=== PATIENT | female | born 1995 | race Caucasian/White ===

== ENCOUNTER 2021-12-13 11:20 | Inpatient (IN) | payer MEDICAID ==
--- NOTE | 2021-12-13 13:51 | Ultrasound Report ---
ULTRASOUND OBSTETRIC INDICATION / CLINICAL INFORMATION: IUGR- GET, EFW. Clinical Gestational Age (GA): 3 9.1 weeks.days TECHNIQUE: Transabdominal. COMPARISON: None available. FINDINGS: There is a single intrauterine . Biparietal Diameter = 8.58 cm = 34.4 weeks.days Head Circumference = 31.97 cm = 36.0 weeks.days Abdominal Circumference = 30.01 cm = 34.0 weeks.days Femur Length = 6.80 cm = 35.0 weeks.days Average Ultrasound Age (AUA) = 34.6 weeks.days Heart Rate: 137 beats per minute. Estimated Weight in grams (if calculated): 2450 Estimated Weight Growth Percentile (if calculated): 1 BREATHING MOVEMENT = 2 GROSS BODY MOVEMENT = 2 TONE = 2 QUALITATIVE AMNIOTIC FLUID VOLUME = 2 TOTAL BIOPHYSICAL SCORE = 8/8 Position: cephalic. Cervix: closed. Amniotic Fluid Volume: normal Amniotic Fluid Index (GET) in cm (if calculated): 12.3. Maternal Adnexa: No significant abnormality. IMPRESSION: 1. Single, living intrauterine with estimated sonographic age of 34.6 weeks.days 2. Biophysical Score = 8/8 Signer Name: Herbert Hoffman MD Signed: 12/13/2021 1:46 PM Workstation Name: [id number]
[2021-12-13] MEDS ORDERED: miSOPROStol 200 MCG TAB PR PRN (20:21)
[2021-12-13] MEDS ORDERED: OXYTOCIN 10 UNIT/1 ML INJ IM PRN (20:21)
[2021-12-13] MEDS ORDERED: METHYLERGONOVINE MALEATE 0.2 MG/ML VIAL IM PRN (20:21)
[2021-12-13] MEDS ORDERED: LOPERAMIDE 2 MG CAP PO PRN (20:21)
[2021-12-13] MEDS ORDERED: CARBOPROST TROMETHAMINE 250 MCG/1 ML INJ IM PRN (20:21)
[2021-12-13] MEDS ORDERED: ePHEDrine SULFATE 50 MG/1 ML INJ IV PRN (20:21)
[2021-12-13 22:18] LABS: Hematocrit 32.2 % (30.3-42.9); Hemoglobin 9.8 gm/dl (10.1-14.3); Mean Corpuscular HGB Conc 31 % (30-34); Mean Corpuscular Volume 80 fl (79-97); Platelet Count 220 K/mm3 (140-440); Red Blood Count 4.03 M/mm3 (3.65-5.03)
[2021-12-13 22:20] LABS: Red Cell Distribution Width 23.3 % (13.2-15.2)
--- NOTE | 2021-12-13 22:23 | Ultrasound Report ---
ULTRASOUND OB VELOCIMETRY UMBILICAL ARTERY INDICATION: Intrauterine growth retardation. TECHNIQUE: Transabdominal ultrasound with color and spectral Doppler imaging COMPARISON: No relevant prior imaging study available. FINDINGS: 3 segments of the umbilical cord were evaluated. heart rate measures 141 bpm. The spectral wave forms are normal and persistent. Average S/D ratio measures: 2.58 Average resistive index measures: 0.61 Signer Name: Uriel Swanson MD Signed: 12/13/2021 10:18 PM Workstation Name: [email or web address]
--- NOTE | 2021-12-13 22:32 | History and Physical Report ---
History of Present Illness Date of examination: 12/13/21 Date of admission: 12/13/21 Chief complaint: Pt sent from office to r/o IUGR History of present illness: 26 yo EDC 12/20/21 @ 39 weeks. Pt. sent from office to r/o IUGR secondary S<D. Pt. admits to good movement. 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 Family/Genetic History: heart disease, hypertension, other (Renal disease) Social history: no significant social history - Obstetrical History Expected Date of Delivery: 12/20/21 Actual Gestation: 39 Week(s) 0 Day(s) : 3 Para: 2 Hx # Term Pregnancies: 2 Number of Pregnancies: 0 Spontaneous Abortions: 0 Induced : 0 Number of Living Children: 2 #1 year: Birthweight: 3.572 kg Method of Delivery: Gestational age at delivery: 40 #2 Gender: Female Birthweight: 2.92 kg Method of Delivery: Medications and Allergies Allergies Allergy/AdvReac Type Severity Reaction Status Date / Time No Known Allergies Allergy Verified 12/12/21 17:37 Home Medications Medication Instructions Recorded Confirmed Last Taken Type Ascorbic Acid [Vitamin C] 500 mg PO QDAY 12/12/21 12/12/21 Unknown History Ferrous Sulfate [Feosol] 325 mg PO TID 12/12/21 12/12/21 Unknown History Active Meds: Active Medications Carboprost Tromethamine (Carboprost Tromethamine 250 Mcg/1 Ml Inj) 250 mcg IM ONCE PRN PRN Reason: Uterine Bleeding Lactated Ringer's (Lactated Ringers) 1,000 mls @ 125 mls/hr IV DIRECT ANJALI Methylergonovine Maleate (Methylergonovine Maleate 0.2 Mg/Ml Vial) 0.2 mg IM ONCE PRN PRN Reason: Uterine Bleeding - Vital Signs Vital signs: Vital Signs Pulse Pulse Ox 91 H 99 12/13/21 12:11 12/13/21 12:11 Temp Pulse Resp BP Pulse Ox 98.1 F 91 H 18 124/70 97 12/13/21 20:24 12/13/21 21:47 12/13/21 12:12 12/13/21 20:27 12/13/21 21:47 - Physical Exam Cardiovascular: Regular rate Lungs: Positive: Clear to auscultation Uterus: Positive: enlarged Extremities: Positive: normal - Obstetrical FHR: category 1 Uterine Contraction Monitor Mode: External Uterine Contraction Pattern: Irregular Results Result Diagrams: 12/13/21 21:37 Abnormal lab results 12/13/21 Range/Units 21:37 Hgb 9.8 L (10.1-14.3) gm/dl MCH 25 L (28-32) pg RDW 23.3 H (13.2-15.2) % All other labs normal. Assessment and Plan IUP @ 39 weeks EFW @ 1 % Previous C section x2 IUGR @ term BPP 12/03. Normal dopplers Pt. for delivery since IUGR @ term Pt. for Csection Desires delivery in am OK for Csection in am . testing reassuring
[2021-12-14] MEDS ORDERED: BUTORPHANOL 2 MG/1 ML INJ IV PRN (02:38)
[2021-12-14] MEDS ORDERED: PENICILLIN G POTASSIUM 5 MIL.UNITS in SODIUM CHLORIDE 0.9% 100 ML IV ONE (02:38)
[2021-12-14] MEDS ORDERED: fentaNYL 100 MCG/2 ML INJ IV PRN (02:38)
[2021-12-14] MEDS ORDERED: ACETAMINOPHEN 325 MG TAB PO PRN ×2 (02:38→21:18)
[2021-12-14] MEDS ORDERED: OXYTOCIN DRIP 30 UNITS/500 ML BAG IV SCH ×2 (03:00)
[2021-12-14] MEDS: LACTATED RINGERS 1,000 ML IV SCH ×2 (03:22→13:30)
--- NOTE | 2021-12-14 03:33 | Event Note ---
Date: 12/13/21 CHIEF COMPLAINT: HD #1, growth restriction HISTORY OF PRESENT ILLNESS: 26-year-old at 39-1/7 weeks gestation is admitted to labor and delivery for management of growth restriction as her fetus has an estimated weight that is less than the 1st percentile. There is no vaginal bleeding. There is no leaking of fluid. There are no contractions. There is good movement. The patient has a history of 2 previous deliveries. Both deliveries were performed in [place] by Dr. Kriss Aburto. The patient reports that the first delivery was allegedly performed secondary to distress. The patient reports that the second delivery was allegedly performed because her cervical dilation was slower than than what her doctor anticipated. Repeat delivery was originally planned for tomorrow morning; however, further investigation revealed that this patient with growth restriction was not formally scheduled and was planned to be performed as the third case of the day barring any other deterring issues. At that time, the patient and I discussed trial of labor after (TOLAC). With her nurse in the room, the patient was counseled in great detail according to ACOG Practice Bulletin 205 (May 2018) regarding the risks associated with TOLAC. The patient understood that with her clinical history, the likelihood of successful is approximately 60-70% according to the [facility] calculator. Furthermore, the patient understood that with her clinical history, the likelihood of uterine rupture is less than 2%. Voicing understanding of all of the risks, alternatives, and benefits, the patient wished to proceed with TOLAC. OBJECTIVE: BP= 124/70 EFM= Category 1 TOCO= None SVE= 0.5/50%/-3/soft/mid. Headley score= 4. LABS: HgB= 9.8 RADIOLOGY: OB US Limited= SLIUP. Vertex. No placenta previa. EFW= 2450 g (<1st %-ile). GET= 12.3 cm. OB Umbilical Artery Cord Dopplers= WNL IMPRESSION: 1.) 39 weeks 2.) growth restriction 3.) GBS positive 4.) History of previous delivery x2 5.) Desires trial of labor after (TOLAC) 6.) Encounter for induction of labor PLAN: 1.) care is up-to-date at [facility] 2.) The etiology of the growth restriction is unknown. However, the most likely cause is constitutional in nature. 3.) Start penicillin for antepartum GBS prophylaxis secondary to 2010 CDC MMWR guidelines. 4.) Ripen cervix with Cook's catheter to be placed transcervically and inflated with 80 mL in the uterine balloon. Place Cook's catheter to traction with 1 L bag of normal saline. Monoket 40 mg PV x1 to aid in cervical ripening. Low- dose Pitocin to augment cervical ripening. 5.) When Cook's catheter falls out, artificially rupture membranes and start Pitocin per protocol.
[2021-12-14] MEDS ORDERED: NALOXONE 0.4 MG/1 ML INJ IV PRN (05:44)
[2021-12-14] MEDS ORDERED: ePHEDrine SULFATE 50 MG/1 ML INJ IV PRN ×2 (05:44→05:45)
--- NOTE | 2021-12-14 05:46 | Anesthesia Consultation ---
Anesthesia Consult and Med Hx Date of service: 12/14/21 - Airway Anesthetic Teeth Evaluation: Good ROM Head & Neck: Adequate Mental/Hyoid Distance: Adequate Mallampati Class: Class II Intubation Access Assessment: Probably Good - Pulmonary Exam CTA: Yes - Cardiac Exam Cardiac Exam: RRR - Pre-Operative Health Status ASA Pre-Surgery Classification: ASA2 Proposed Anesthetic Plan: Epidural - Pulmonary Hx Smoking: Yes (USED TO VAPE. STOPPED 02/2021.) Hx Asthma: No Hx Respiratory Symptoms: No SOB: No COPD: No Home Oxygen Therapy: No Hx Pneumonia: No Hx Sleep Apnea: No - Cardiovascular System Hx Hypertension: No Hx Coronary Artery Disease: No Hx Heart Attack/AMI: No Hx Angina: No Hx Percutaneous Transluminal Coronary Angioplasty (PTCA): No Hx Cardia Arrhythmia: No Hx Pacemaker: No Hx Internal Defibrillator: No Hx Valvular Heart Disease: No Hx Heart Murmur: No Hx Peripheral Vascular Disease: No - Central Nervous System Hx Neuromuscular Disorder: No Hx Seizures: No CVA: No Hx Back Pain: No Hx Psychiatric Problems: No - Gastrointestinal Hx Ulcer: No Hx Gastroesophageal Reflux Disease: No - Endocrine Hx Renal Disease: No Hx End Stage Renal Disease: No Hx Cirrhosis: No Hx Liver Disease: No Hx Insulin Dependent Diabetes: No Hx Non-Insulin Dependent Diabetes: No Hx Thyroid Disease: No Hx Hypothyroidism: No Hx Hyperthyroidism: No - Hematic Hx Anemia: Yes (TAKES PRENATALS AND FE) Hx Sickle Cell Disease: No - Other Systems Hx Alcohol Use: No Hx Substance Use: No Hx Cancer: No Hx Obesity: No
--- NOTE | 2021-12-14 05:47 | Anesthesia Day of Surgery ---
Anesthesia Day of Surgery - Day of Surgery Patient Examined: Yes Patient H&P Reviewed: Yes Patient is NPO: Yes Beta Blockers: No Cardiac Clearance: No Pulmonary Clearance: No Idris's Test: N/A
[2021-12-14] MEDS: fentaNYL-BUPIV 2 MCG/ML-0.125% 200 MCG/100 ML BAG EPIDURAL SCH ×2 (06:14→13:33)
--- NOTE | 2021-12-14 06:48 | Progress Note ---
Labor Epidural - Labor Epidural Start Time: 05:20 Stop Time: 05:30 Performed by:: MARGO HERMAN Procedure: Epidural Requested for Labor Pain. H&P and PT Chart reviewed and consent obtained. Time out performed and the procedure was explained, all questions answered. Patient was placed in a sitting position with monitors applied. The PTs back was prepped and draped in usual sterile fashion. The Skin was localized with 3 mL of 1% lidocaine at L3-L4. A 17-gauge Touhy epidural needle was advanced to JD with saline at 7 cm and no blood/CSF was noted via epidural needle. Epidural catheter was advanced to 12 cm. There was negative aspiration for blood and CSF in the catheter and negative response to a test dose of 3 ml 1.5% lidocaine w/ Epi and a sterile dressing was applied Patient tolerated the procedure well and there were no immediate complications noted.
[2021-12-14] MEDS: PENICILLIN G POTASSIUM 2.5 MIL.UNITS in SODIUM CHLORIDE 0.9% 50 ML IV SCH ×2 (07:40→13:30)
--- NOTE | 2021-12-14 10:05 | Event Note ---
Date: 12/14/21 S: Feeling ok, epidural in O: VE /-2, IUPC and FSE placed, Pit at 2mu, CAT I tracing A: TOLAC P: Increase pitocin
--- NOTE | 2021-12-14 13:27 | Event Note ---
Date: 12/14/21 S: Discussed progression of labor with her O: No change in cervix and variable decelerations noted without pitocin. Cat I A: Failed TOLAC at 39 weeks P: Discussed with Dr. Shook will proceed with C/S when OR available
[2021-12-14] MEDS ORDERED: BUPIVACAINE/PF (0.5%) 5 MG/1 ML 30 ML VIAL INFILTRATI ONE ×2 (16:41→18:02)
[2021-12-14] MEDS ORDERED: BICITRA ORAL LIQD 30ML PO ONE (16:45)
[2021-12-14] MEDS ORDERED: METOCLOPRAMIDE 10 MG/2 ML INJ IV NR (17:00)
[2021-12-14] MEDS ORDERED: FAMOTIDINE 20 MG TAB PO NR (17:00)
[2021-12-14] MEDS ORDERED: ceFAZolin/STERILE WATER 2 GM/20 ML SYRINGE IV NR (17:00)
[2021-12-14] MEDS ORDERED: BUPIVACAINE/PF (0.25%) 2.5 MG/ML 30 ML VIAL INFILTRATI ONE (17:59)
[2021-12-14] MEDS ORDERED: dexAMETHasone 20 MG/5 ML VIAL ONE (17:59)
[2021-12-14] MEDS ORDERED: ONDANSETRON 4 MG/2 ML INJ ONE (17:59)
[2021-12-14] MEDS ORDERED: FAMOTIDINE 20 MG/2 ML INJ IV SCH (18:00)
[2021-12-14] MEDS ORDERED: SODIUM CHLORIDE 0.9% 100 ML ONE (18:03)
[2021-12-14] MEDS ORDERED: LIDOCAINE (2%) 20 MG/1 ML VIAL 20 ML MDV INFILTRATI ONE (18:20)
[2021-12-14] MEDS ORDERED: DIPHENOXYLATE/ATROPINE TAB ONE (19:04)
[2021-12-14 19:38] LABS: Hematocrit 31.7 % (30.3-42.9); Hemoglobin 9.7 gm/dl (10.1-14.3); Mean Corpuscular HGB Conc 31 % (30-34); Mean Corpuscular Volume 80 fl (79-97); Platelet Count 263 K/mm3 (140-440); Red Blood Count 3.96 M/mm3 (3.65-5.03)
[2021-12-14 19:55] LABS: Red Cell Distribution Width 24.5 % (13.2-15.2)
[2021-12-14] MEDS ORDERED: DIPHENOXYLATE/ATROPINE TAB PO ONE (20:10)
[2021-12-14 21:00] LABS: Basophils % (Manual) 0 % (0.0-1.8); Eosinophils % (Manual) 0 % (0.0-4.3); Total Cells Counted 100
[2021-12-14 21:02] LABS: Anisocytosis 1+; Hypochromasia 1+
[2021-12-14] MEDS ORDERED: MAGNESIUM HYDROXIDE (MOM) ORAL LIQD UDC PO PRN (21:18)
[2021-12-14] MEDS ORDERED: LANOLIN/ZINC/DIMETHICONE (LANSINOH) 7 GM TP PRN (21:18)
[2021-12-14] MEDS ORDERED: diphenhydrAMINE 25 MG CAP PO PRN (21:18)
[2021-12-14] MEDS ORDERED: SODIUM CHLORIDE 0.9% 500 ML 500 ML IV ONE (21:25)
--- NOTE | 2021-12-14 21:53 | Procedure Note ---
OB Delivery Note - Delivery Date of Delivery: 12/14/21 Surgeon: DEVIN OTOOLE Estimated blood loss: other - Vaginal Delivery position: OA (head was transverse) Delivery induction: misoprostol Delivery augmentation: pitocin Delivery monitor: external FHT, external uterine, internal FHT, internal uterine Route of delivery: Delivery placenta: spontaneous Delivery cord: nuchal cord Delivery laceration: 3rd degree, vaginal side wall Delivery repair: vicryl Anesthesia: epidural Delivery comments: Upon awaiting to go to the OR, she c/o feeling pressure. On exam she was found to be C/C/+2. She pushed and delivered a viable female 5#10 oz., nuchal cord x 1 reduced. Cord cut and clamped and baby given to the Nursery staff. Apgars were 8/9. She had a right vaginal wall laceration, 3rd degree laceration. Her tissue continued to bleed making it difficult to see to repair. After attempting to repair her vaginal and perineum a vaginal packing was placed, Dr. Shook was notified to come and assist. At that point her QBL was 1436 (which was calculated after leaving the OR). Dr. Shook arrived and she was taken to the OR for the repair. The total QBL was 1536. She was transfused 4 units of PRBC's in the OR. - Infant A at 1 minute: 8 at 5 minutes: 9 Gender: Female (5-10)
--- NOTE | 2021-12-14 22:15 | Event Note ---
Date: 12/14/21 Marble Cleaner Genna called indicating that her patient needed to be sectioned due to non progression of labor and 2 prior cesareans. Section would follow the two others already waiting.
--- NOTE | 2021-12-14 22:21 | Event Note ---
Date: 12/14/21 Obtained consent from patient for her delivery. die turner Colleen aware and said OR not available yet.
--- NOTE | 2021-12-14 22:27 | Event Note ---
Date: 12/14/21 process control supervisor Colleen said will be done after the next shift takes over at 7pm. I spoke with Vicky Kendrick CNM to see if an earlier time was possible - was set for 6:30 PM.
--- NOTE | 2021-12-14 22:30 | Event Note ---
Date: 12/14/21 I arrived L&D for . fish icer informed me that patient had delivered vaginally.
--- NOTE | 2021-12-14 22:34 | Procedure Note ---
Date of procedure: 12/14/21 Pre-op diagnosis: 1. Vaginal Lacerations 2. 3RD Perineal laceration Post-op diagnosis: other (Vaginal Lacerations involving both side kolb and the fourchette) Procedure: Patient was taken to the operating room in L&D. Lithotomy position was used. Uriostegui's cather was in place. Multiple stitches of 2-0 vicryl were used to 1. approximate tissue layers 2. stop bleeders 3. coopt the fascia layer over the rectum 4. repair the torn anal sphincter 5. repair the subcutanous layer 6. close the skin subcuticularly. Rectal examinations were done and no breach of the rectal wall was identified. The rectal mucosa was not impacted by injury. There was no further active bleeding after the repairs. Blood loss was estimated at 1000cc. Transfused with 3 units of packed cells during the session. All sponges and instruments were accounted for. Patient was alert all through and tolerated the procedure well. She was returned to her delivery room safely. Anesthesia: local, epidural Surgeon: SITA BURLESON Harmonic Analyst: DEVIN OTOOLE Estimated blood loss: other (1000cc) Pathology: none Condition: stable Disposition: floor
[2021-12-14] MEDS: oxyCODONE /ACETAMINOPHEN 5-325MG TAB PO PRN (22:36)
--- NOTE | 2021-12-14 23:54 | Ultrasound Report ---
ULTRASOUND PELVIS INDICATION / CLINICAL INFORMATION: extensive vaginal repair after delivery. Status post vaginal deliv azeb 6 hours ago. TECHNIQUE: Transabdominal. Duplex Color Doppler used: Yes. COMPARISON: OB ultrasound 12/13/2021 FINDINGS: UTERUS: Uterus measures 21.2 x 9.5 x 7.7 cm. The endometrial cavity is enlarged measuring 13 mm. No c olor flow noted within the endometrial cavity. RIGHT ADNEXA: Right ovary measures 2.7 x 1.5 x 2.0 cm. Normal color Doppler blood flow. LEFT ADNEXA: Left ovary measures 3.1 x 1.5 x 2.5 cm. Normal color Doppler blood flow. Possible left h ydrosalpinx. URINARY BLADDER: No significant abnormality. FREE FLUID: None. ADDITIONAL FINDINGS: None. IMPRESSION: 1. Post-gravid uterus minimally thickened endometrial stripe. No specific abnormality. Signer Name: Priyank Fernandez II, MD Signed: 12/14/2021 11:49 PM Workstation Name: [id number]
[2021-12-15 01:10] LABS: Hematocrit 40.2 % (30.3-42.9); Hemoglobin 12.8 gm/dl (10.1-14.3); Mean Corpuscular HGB Conc 32 % (30-34); Mean Corpuscular Volume 83 fl (79-97); Platelet Count 171 K/mm3 (140-440); Red Blood Count 4.84 M/mm3 (3.65-5.03); Red Cell Distribution Width 19.8 % (13.2-15.2)
[2021-12-15] MEDS: IBUPROFEN 800 MG TAB PO SCH ×3 (01:50→14:58)
[2021-12-15] MEDS ORDERED: LACTATED RINGERS 1,000 ML IV SCH (02:15)
[2021-12-15] MEDS ORDERED: DIPHENOXYLATE/ATROPINE TAB PO PRN (02:15)
[2021-12-15 03:10] LABS: Anisocytosis 1+; Basophils % (Manual) 0 % (0.0-1.8); Eosinophils % (Manual) 0 % (0.0-4.3); Hypochromasia 1+; Schistocytes Rare; Total Cells Counted 100
[2021-12-15] MEDS: oxyCODONE /ACETAMINOPHEN 5-325MG TAB PO PRN ×3 (03:41→18:29)
--- NOTE | 2021-12-15 09:12 | Post Anesthesia Evaluation ---
- Post Anesthesia Evaluation Patient Participated: Yes Airway Patent: Yes Stable Respiratory Function: Yes Nausea/Vomiting: No Temp > 96.8F: Yes Pain Manageable: Yes Adequeate Hydration: Yes Anesthesia Complications: No Block Receding Appropriately: Yes Patient on Ventilator: No
--- NOTE | 2021-12-15 10:36 | Progress Note ---
Assessment and Plan O: Blood tinged urine noted in Uriostegui- will do Fluid bolus challenge to further evaluate, lochia scant A: PPD # 1- operative vaginal repair S/P 4 units PRBC's P: CBC in am Subjective - Subjective Date of service: 12/15/21 Principal diagnosis: - PPD #1 Interval history: Feeling sore in her bottom and in her legs from her prolonged repair Patient reports: appetite normal : doing well Objective - Vital Signs Latest vital signs: Vital Signs Temp Pulse Resp BP BP Pulse Ox Pulse Ox 12/15/21 07:41 98.0 F 87 18 111/60 96 12/15/21 04:05 97.9 F 79 18 109/65 94 12/14/21 23:10 98.3 F 90 18 103/61 96 96 12/14/21 22:43 98 H 97 12/14/21 22:41 101 H 104/59 12/14/21 22:38 92 H 97 12/14/21 22:33 105 H 98 12/14/21 22:30 93 H 105/56 12/14/21 22:28 101 H 97 12/14/21 22:23 93 H 76 L 12/14/21 22:22 100 H 94 12/14/21 22:21 93 H 104/60 12/14/21 22:18 91 H 97 12/14/21 22:13 121 H 96 12/14/21 22:07 75 88 12/14/21 22:02 88 97 12/14/21 22:00 86 105/66 12/14/21 21:57 96 H 99 12/14/21 21:52 96 H 99 12/14/21 21:51 105 H 102/72 12/14/21 21:47 92 H 99 12/14/21 21:42 99 H 98 12/14/21 21:41 102 H 107/61 12/14/21 21:37 98 H 98 12/14/21 21:32 97.4 F L 93 H 112/53 98 12/14/21 20:00 155 H 109/72 12/14/21 19:56 164 H 98 12/14/21 19:51 145 H 99 12/14/21 19:50 144 H 118/74 12/14/21 19:46 162 H 99 12/14/21 19:41 139 H 99 12/14/21 19:40 134 H 109/66 12/14/21 19:36 139 H 98 12/14/21 19:31 138 H 98 12/14/21 19:30 141 H 119/62 12/14/21 19:26 144 H 98 12/14/21 19:24 146 H 126/83 12/14/21 19:21 147 H 99 12/14/21 19:16 148 H 99 12/14/21 19:11 130 H 99 12/14/21 19:09 139 H 125/72 12/14/21 19:06 143 H 100 12/14/21 19:01 139 H 100 12/14/21 18:56 102 H 100 12/14/21 18:54 106 H 114/57 12/14/21 18:51 111 H 99 12/14/21 18:46 68 200 H 100 12/14/21 18:41 119 H 100 12/14/21 18:39 117 H 121/59 12/14/21 18:36 122 H 100 12/14/21 18:31 112 H 100 12/14/21 18:26 117 H 100 12/14/21 18:24 123 H 123/66 12/14/21 18:21 129 H 100 12/14/21 18:16 110 H 99 12/14/21 18:11 155 H 97 12/14/21 18:09 123 H 119/55 12/14/21 18:06 118 H 100 12/14/21 18:01 112 H 100 12/14/21 17:56 107 H 100 12/14/21 17:52 110 H 92 12/14/21 17:51 104 H 97 12/14/21 17:46 92 H 100 12/14/21 17:41 94 H 100 12/14/21 17:40 86 108/72 12/14/21 17:36 112 H 100 12/14/21 17:35 113 H 84 12/14/21 17:31 91 H 100 12/14/21 17:26 96 H 100 12/14/21 17:24 90 112/66 12/14/21 17:21 106 H 100 12/14/21 17:16 98 H 100 12/14/21 17:11 85 100 12/14/21 17:06 97 H 100 12/14/21 17:01 86 100 12/14/21 16:56 95 H 100 12/14/21 16:51 89 100 12/14/21 16:46 91 H 100 12/14/21 16:41 90 100 12/14/21 16:36 87 100 12/14/21 16:31 97 H 100 12/14/21 16:29 106 H 93 12/14/21 16:26 92 H 98 12/14/21 16:21 94 H 98 12/14/21 16:16 99 H 96 12/14/21 16:14 97 H 81 L 12/14/21 16:11 111 H 99 12/14/21 16:09 126 H 142/80 12/14/21 16:06 119 H 99 12/14/21 16:01 104 H 97 12/14/21 16:00 104 H 93 12/14/21 15:56 104 H 97 12/14/21 15:54 120 H 95/60 12/14/21 15:51 113 H 98 12/14/21 15:46 103 H 98 12/14/21 15:41 97 H 97 12/14/21 15:39 96 H 101/54 12/14/21 15:36 97 H 97 12/14/21 15:31 95 H 97 12/14/21 15:26 89 95/55 98 12/14/21 15:21 108 H 98 12/14/21 15:16 104 H 98 12/14/21 15:11 100 H 98 12/14/21 15:09 91 H 97/51 12/14/21 15:06 98 H 96 12/14/21 15:01 98 H 98 12/14/21 14:56 95 H 97 12/14/21 14:54 94 H 96/52 12/14/21 14:51 82 97 12/14/21 14:46 99 H 98 12/14/21 14:41 93 H 95 12/14/21 14:39 89 101/51 12/14/21 14:36 101 H 96 12/14/21 14:31 91 H 97 12/14/21 14:26 81 98 12/14/21 14:24 95 H 102/57 12/14/21 14:21 80 99 12/14/21 14:16 87 99 12/14/21 14:11 89 98 12/14/21 14:09 94 H 108/56 12/14/21 14:06 99 H 100 12/14/21 14:01 99 H 99 12/14/21 13:56 98 H 98 12/14/21 13:55 90 108/55 12/14/21 13:51 100 H 98 12/14/21 13:46 92 H 99 12/14/21 13:41 108 H 100 12/14/21 13:40 100 H 103/55 12/14/21 13:36 108 H 99 12/14/21 13:31 98 H 100 12/14/21 13:26 105 H 100 12/14/21 13:25 97 H 108/57 12/14/21 13:21 97 H 100 12/14/21 13:16 76 100 12/14/21 13:15 97.7 F 16 12/14/21 13:11 72 100 12/14/21 13:09 89 108/53 12/14/21 13:06 77 100 12/14/21 13:01 86 100 12/14/21 12:56 79 100 12/14/21 12:54 90 102/54 12/14/21 12:51 72 100 12/14/21 12:46 74 100 12/14/21 12:41 69 100 12/14/21 12:40 76 107/64 12/14/21 12:36 73 100 12/14/21 12:31 78 100 12/14/21 12:26 70 100 12/14/21 12:25 89 113/58 12/14/21 12:21 97 H 100 12/14/21 12:16 75 100 12/14/21 12:11 73 100 12/14/21 12:09 78 100/54 12/14/21 12:06 83 100 12/14/21 12:01 85 100 12/14/21 11:56 86 100 12/14/21 11:55 77 109/53 12/14/21 11:51 78 100 12/14/21 11:46 73 100 12/14/21 11:41 95 H 100 12/14/21 11:39 88 107/57 12/14/21 11:36 74 100 12/14/21 11:31 72 100 12/14/21 11:26 89 100 12/14/21 11:25 96 H 114/54 12/14/21 11:23 96 H 79 L 12/14/21 11:21 71 98 12/14/21 11:16 76 98 12/14/21 11:11 77 98 12/14/21 11:10 75 108/55 12/14/21 11:06 82 100 12/14/21 11:01 101 H 98 12/14/21 11:00 99 H 92 12/14/21 10:56 89 98 12/14/21 10:54 83 97/55 12/14/21 10:51 77 99 12/14/21 10:46 85 100 12/14/21 10:41 92 H 99 12/14/21 10:39 83 92/54 12/14/21 10:36 84 99 12/14/21 10:31 87 98 Intake and Output 12/14/21 12/15/21 12/15/21 22:59 06:59 14:59 Intake Total 28.733 120 120 Output Total 500 400 Balance -471.267 -280 120 Intake: IV 28.733 PITOCin/NS 30 UNIT/500ML 28.733 30 units In 500 ml @ 2 mls/hr IV TITR ANJALI Rx#: [id number] Oral 120 120 Output: Urine 500 400 Indwelling Catheter 500 400 Other: Total, Intake Amount 120 120 Total, Output Amount 125 400 - Exam Breasts: Present: deferred Cardiovascular: Present: Regular rate Lungs: Present: Clear to auscultation Abdomen: Present: soft Uterus: Present: fundal height below umbilicus Deep Tendon Reflex Grade: Normal +2 - Labs Labs: Abnormal lab results 12/13/21 12/14/21 12/15/21 Range/Units 21:37 19:20 00:39 WBC 26.4 H 27.9 H (4.5-11.0) K/mm3 Hgb 9.7 L (10.1-14.3) gm/dl MCH 25 L 26 L (28-32) pg RDW 24.5 H 19.8 H (13.2-15.2) % Seg Neuts % (Manual) 84.0 H 89.0 H (40.0-70.0) % Lymphocytes % (Manual) 6.0 L 4.0 L (13.4-35.0) % Monocytes % (Manual) 10.0 H (0.0-7.3) % Seg Neutrophils # Man 22.2 H 24.8 H (1.8-7.7) K/mm3 Lymphocytes # (Manual) 1.1 L (1.2-5.4) K/mm3 Monocytes # (Manual) 2.6 H 2.0 H (0.0-0.8) K/mm3 Crossmatch See Detail
[2021-12-15] MEDS: BENZOCAINE/MENTHOL 20/0.5% TOP SPRAY 56 GM TP PRN (20:33)
[2021-12-15] MEDS: WITCH HAZEL/ GLYCERIN PAD TP PRN (20:33)
[2021-12-16] MEDS: IBUPROFEN 800 MG TAB PO SCH ×4 (00:08→23:54)
[2021-12-16] MEDS: oxyCODONE /ACETAMINOPHEN 5-325MG TAB PO PRN ×2 (02:44→10:21)
[2021-12-16 09:21] LABS: Basophils % (Auto) 0.2 % (0.0-1.8); Eosinophils # (Auto) 0.2 K/mm3 (0.0-0.4); Eosinophils % (Auto) 1.5 % (0.0-4.3); Hematocrit 33.1 % (30.3-42.9); Hemoglobin 10.5 gm/dl (10.1-14.3); Lymphocytes # (Auto) 1.5 K/mm3 (1.2-5.4); Lymphocytes % (Auto) 10.3 % (13.4-35.0); Mean Corpuscular HGB Conc 32 % (30-34); Mean Corpuscular Volume 83 fl (79-97); Monocytes # (Auto) 0.9 K/mm3 (0.0-0.8); Monocytes % (Auto) 6.3 % (0.0-7.3); Platelet Count 158 K/mm3 (140-440)
[2021-12-16 09:22] LABS: Red Cell Distribution Width 20.6 % (13.2-15.2)
--- NOTE | 2021-12-16 13:07 | Progress Note ---
Assessment and Plan A: , PPD2, Repair done in OR Ambulating, chavarria d/c WBC trending down from 27.9 to 14.2, hemoglobin from 12.8 to 10.5 P: Continue PP care Discharge in 24 hrs if stable Subjective - Subjective Date of service: 12/16/21 (1140) Principal diagnosis: - PPD #1 Patient reports: appetite normal, voiding normally, pain well controlled (STILL WITH MODERATE HIP DISCOMFORT), ambulating normally (WITH SOME ERLINDA HIP DISC OMFORT) [place]: bottle feeding Objective - Vital Signs Latest vital signs: Vital Signs Temp Pulse Resp BP Pulse Ox Pulse Ox 12/16/21 08:10 98 12/16/21 07:50 98.0 F 78 18 111/66 95 12/16/21 02:44 16 12/16/21 00:42 98.2 F 88 20 102/55 97 12/16/21 00:08 16 12/15/21 22:00 98 12/15/21 16:58 97.6 F 89 18 102/54 96 Intake and Output 12/15/21 12/16/21 12/16/21 23:59 07:59 15:59 Intake Total 600 240 Balance 600 240 Intake: Oral 360 240 Intake, Free Water 240 Other: Total, Intake Amount 240 240 # Voids Void 200 1 - Exam Breasts: Present: deferred Cardiovascular: Present: Regular rate Lungs: Present: Clear to auscultation Abdomen: Present: normal appearance, soft, tenderness Vulva: both: normal, laceration/episiotomy (slight swelling, no bleeding) Uterus: Present: firm, tenderness, fundal height below umbilicus Extremities: Present: normal (c/o hip pain with ambulation) Deep Tendon Reflex Grade: Normal +2 - Labs Labs: Abnormal lab results 12/13/21 12/16/21 Range/Units 21:37 07:52 WBC 14.2 H (4.5-11.0) K/mm3 MCH 26 L (28-32) pg RDW 20.6 H (13.2-15.2) % Lymph % (Auto) 10.3 L (13.4-35.0) % [place] # (Auto) 0.9 H (0.0-0.8) K/mm3 Seg Neutrophils % 81.7 H (40.0-70.0) % Seg Neutrophils # 11.6 H (1.8-7.7) K/mm3 Crossmatch See Detail
[2021-12-17] MEDS: IBUPROFEN 800 MG TAB PO SCH (05:45)
[2021-12-17] MEDS: WITCH HAZEL/ GLYCERIN PAD TP PRN (11:29)
[2021-12-17] MEDS: BENZOCAINE/MENTHOL 20/0.5% TOP SPRAY 56 GM TP PRN (11:29)
[2021-12-17 11:45] VITALS: BP 119/67
== END 2021-12-17 12:00 | disposition home or self-care (01) | DRG 775 ==
LOC: TRG 11:20 → APU 11:21 → LD 20:25 → TRG 12-14 07:20 → OB 12-14 23:03
PROVIDERS: ADMIT Obstetrics & Gynecology; ATTEND Obstetrics & Gynecology
PROC: 10E0XZZ Delivery of Products of Conception, External Approach (ICD-10-PCS; principal; 2021-12-14)
PROC: 0DQR0ZZ Repair Anal Sphincter, Open Approach (ICD-10-PCS; 2021-12-14)
PROC: 10H07YZ Insertion of Other Device into Products of Conception, Via Natural or Artificial Opening (ICD-10-PCS; 2021-12-14)
PROC: 30233N1 Transfusion of Nonautologous Red Blood Cells into Peripheral Vein, Percutaneous Approach (ICD-10-PCS; 2021-12-14)
PROC: 3E0P7VZ Introduction of Hormone into Female Reproductive, Via Natural or Artificial Opening (ICD-10-PCS; 2021-12-14)
PROC: 3E0R3BZ Introduction of Anesthetic Agent into Spinal Canal, Percutaneous Approach (ICD-10-PCS; 2021-12-14)
PROC: 00HU33Z Insertion of Infusion Device into Spinal Canal, Percutaneous Approach (ICD-10-PCS; 2021-12-14)
DX: O36.5930 Maternal care for other known or suspected poor fetal growth, third trimester, not applicable or unspecified (principal); Z37.0 Single live birth; Z3A.39 39 weeks gestation of pregnancy; Z20.822 Contact with and (suspected) exposure to COVID-19; O34.211 Maternal care for low transverse scar from previous cesarean delivery; O99.824 Streptococcus B carrier state complicating childbirth; O69.81X0 Labor and delivery complicated by cord around neck, without compression, not applicable or unspecified; O70.20 Third degree perineal laceration during delivery, unspecified
CPT/HCPCS: 36415; 76816; 76819; 76820; 76856; 85007; 85025; 85027; 86850; 86900; 86901; 86920; 88307; G0378; J3490; J7121; J1100; J2210; J2405; J2540; J2590; J2765; J3010; J7120; P9016; U0003

== ENCOUNTER 2021-12-20 11:56 | Emergency (ER) | payer MEDICAID ==
[2021-12-20 15:22] LABS: Hemoglobin 13.3 gm/dl (10.1-14.3); Mean Corpuscular HGB Conc 33 % (30-34); Mean Corpuscular Volume 84 fl (79-97); Platelet Count 290 K/mm3 (140-440); Red Cell Distribution Width 19.8 % (13.2-15.2)
[2021-12-20 15:29] LABS: Alanine Aminotransferase 35 units/L (7-56); Albumin 3.8 g/dL (3.9-5); Blood Urea Nitrogen 7 mg/dL (7-17); Calcium 9.4 mg/dL (8.4-10.2); Hemolysis Index 7
[2021-12-20 15:45] LABS: BUN/Creatinine Ratio 10
--- NOTE | 2021-12-20 16:02 | Emergency Department Report ---
ED Female HPI - General Chief complaint: Urogenital-Female Stated complaint: HEADACHE/BLOODCLOT Time Seen by Provider: 12/20/21 15:47 Source: patient Mode of arrival: Ambulatory Limitations: No Limitations - History of Present Illness Initial comments: 26-year-old black female with no past medical history presents to the emergency department for evaluation of vaginal bleeding. She states that she is 6 days status post vaginal delivery and when she woke up this a.m., she noticed a blood clot that was slightly over the size of a quarter. She states that she noticed clotting once and has not not noticed any clots since then. She states that she spoke with her INTERMEDIATE TEACHER who advised her to follow-up in the emergency department for further evaluation and management. She states that over the past few days she saturated 2-3 pads per day. She denies dizziness, weakness, nausea, and vomiting. MD Complaint: vaginal bleeding -: Gradual, days(s) (6) Severity scale (0 -10): 0 Are you Now?: No Associated Symptoms: vaginal bleeding. denies: vaginal discharge, abdominal pain, nausea/vomiting, fever/chills, headaches, loss of appetite, dysuria, hematuria, rash, seizure, shortness of breath, syncope, weakness - Related Data Sexually active: Yes Home Medications Medication Instructions Recorded Confirmed Last Taken Ascorbic Acid [Vitamin C] 500 mg PO QDAY 12/12/21 12/14/21 12/12/21 Ferrous Sulfate [Feosol 325 MG tab] 325 mg PO TID 12/12/21 12/14/21 12/13/21 Tablet 1 tab PO DAILY 12/14/21 12/14/21 12/12/21 Previous Rx's Medication Instructions Recorded Last Taken Type Acetaminophen [Acetaminophen TAB] 650 mg PO Q4H PRN tablet 12/16/21 Unknown Rx Benzocaine/Menthol [Dermoplast] 1 spray TP TID PRN can 12/16/21 Unknown Rx Glycerin/ Witch [facility] Pad [Tucks 1 each TP PRN PRN box 12/16/21 Unknown Rx Pad] Ibuprofen [Motrin 800 MG tab] 800 mg PO Q8HR #30 tablet 12/16/21 Unknown Rx bisacodyL [Dulcolax suppos] 10 mg CA BID PRN supp.rect 12/16/21 Unknown Rx Allergies Allergy/AdvReac Type Severity Reaction Status Date / Time No Known Allergies Allergy Verified 12/12/21 17:37 ED Review of Systems ROS: Stated complaint: HEADACHE/BLOODCLOT Other details as noted in HPI Comment: All other systems reviewed and negative Constitutional: denies: chills, fever Eyes: denies: vision change Respiratory: denies: shortness of breath Cardiovascular: denies: chest pain, palpitations Gastrointestinal: denies: abdominal pain, nausea, vomiting Genitourinary: denies: urgency, dysuria Musculoskeletal: denies: back pain Skin: denies: rash, lesions Neurological: headache. denies: weakness, numbness, paresthesias, confusion, abnormal gait, vertigo ED Past Medical Hx - Past Medical History Hx Hypertension: No Hx Heart Attack/AMI: No Hx Congestive Heart Failure: No Hx Diabetes: No Hx Deep Vein Thrombosis: No Hx Liver Disease: No Hx Renal Disease: No Hx Sickle Cell Disease: No Hx Seizures: No Hx Asthma: No Hx COPD: No Hx Tuberculosis: No Hx HIV: No - Surgical History Hx Pacemaker: No Hx Internal Defibrillator: No - Social History Smoking Status: Never Smoker - Medications Home Medications: Home Medications Medication Instructions Recorded Confirmed Last Taken Type Ascorbic Acid [Vitamin C] 500 mg PO QDAY 12/12/21 12/14/21 12/12/21 History Ferrous Sulfate [Feosol 325 MG tab] 325 mg PO TID 12/12/21 12/14/21 12/13/21 History Tablet 1 tab PO DAILY 12/14/21 12/14/21 12/12/21 History Acetaminophen [Acetaminophen TAB] 650 mg PO Q4H PRN tablet 12/16/21 Unknown Rx Benzocaine/Menthol [Dermoplast] 1 spray TP TID PRN can 12/16/21 Unknown Rx Glycerin/ Witch [facility] Pad [Tucks 1 each TP PRN PRN box 12/16/21 Unknown Rx Pad] Ibuprofen [Motrin 800 MG tab] 800 mg PO Q8HR #30 tablet 12/16/21 Unknown Rx bisacodyL [Dulcolax suppos] 10 mg CA BID PRN supp.rect 12/16/21 Unknown Rx ED Physical Exam - General Limitations: No Limitations General appearance: alert, in no apparent distress - Head Head exam: Present: atraumatic, normocephalic - Eye Eye exam: Present: normal appearance. Absent: conjunctival injection - Neck Neck exam: Present: normal inspection. Absent: tenderness, lymphadenopathy - Respiratory Respiratory exam: Present: normal lung sounds bilaterally. Absent: respiratory distress, wheezes, rales, rhonchi, stridor, chest wall tenderness - Cardiovascular Cardiovascular Exam: Present: regular rate, normal heart sounds - GI/Abdominal GI/Abdominal exam: Present: soft, normal bowel sounds. Absent: distended, tenderness, guarding, rebound, rigid - Extremities Exam Extremities exam: Present: normal inspection, normal capillary refill - Back Exam Back exam: Present: normal inspection. Absent: CVA tenderness (R), CVA tenderness (L), vertebral tenderness - Neurological Exam Neurological exam: Present: alert, oriented X3 - Psychiatric Psychiatric exam: Present: normal affect, normal mood - Skin Skin exam: Present: warm, dry, intact, normal color ED Course Vital Signs 12/20/21 12:19 Temperature 98.3 F Pulse Rate 77 Blood Pressure 132/85 [Left] O2 Sat by Pulse 100 Oximetry ED Medical Decision Making - Lab Data Result diagrams: 12/20/21 14:46 12/20/21 14:46 - Medical Decision Making 26-year-old black female with no past medical history presents to the emergency department for evaluation of vaginal bleeding. She states that she is 6 days status post vaginal delivery and when she woke up this a.m., she noticed a blood clot that was slightly over the size of a quarter. She states that she noticed clotting once and has not not noticed any clots since then. She states that she spoke with her INTERMEDIATE TEACHER who advised her to follow-up in the emergency department for further evaluation and management. She states that over the past few days she saturated 2-3 pads per day. She denies dizziness, weakness, nausea, and vomiting. Physical exam unremarkable. CBC and CMP unremarkable. Patient without any complaints of at this time. Patient be discharged home to follow-up with her INTERMEDIATE TEACHER as planned. She is advised to return to the emergency department as needed. She verbalizes understanding of and agreement with plan of care. Critical care attestation.: If time is entered above; I have spent that time in minutes in the direct care of this critically ill patient, excluding procedure time. ED Disposition Clinical Impression: Vaginal bleeding Disposition: HOME / SELF CARE / HOMELESS Is pt being admited?: No Does the pt Need Aspirin: No Condition: Stable Additional Instructions: Increase intake of noncaffeinated fluids. Follow-up with INTERMEDIATE TEACHER as planned. Return to the emergency department as needed. Time of Disposition: 16:04
[2021-12-20 16:18] VITALS: BP 123/82
== END 2021-12-20 16:34 | disposition home or self-care (01) ==
LOC: ED 11:56
DX: N93.9 Abnormal uterine and vaginal bleeding, unspecified (principal)
CPT/HCPCS: 36415; 80053; 85027; 99283